=== PATIENT | female | born 1970 | race Caucasian/White ===

== ENCOUNTER 2022-03-10 07:25 | Day surgery (SDC) | payer MEDICARE, MEDICAID ==
[~2022-03-10] VITALS: Ht 157.5 cm; Wt 81.6 kg
[2022-03-10] MEDS ORDERED: ESTRACE1 MG PO (07:49)
[2022-03-10] MEDS ORDERED: LIPOFEN50 MG PO (07:51)
[2022-03-10] MEDS ORDERED: GABAPENTIN600 MG PO (07:52)
[2022-03-10] MEDS ORDERED: MOTRIN200 MG PO (07:53)
[2022-03-10] MEDS ORDERED: MAGNESIUM CITR100 M1 PO (07:55)
[2022-03-10] MEDS ORDERED: MULTIVITAMIN WO1 TAB PO (07:56)
[2022-03-10] MEDS ORDERED: NASACORT A55 MCG/ACT NAB (07:57)
[2022-03-10] MEDS ORDERED: OMEPRAZOLE20 MG PO (08:09)
[2022-03-10] MEDS ORDERED: PROGESTERONE100 MG PO (08:10)
[2022-03-10] MEDS ORDERED: PRAVASTATIN SOD20 MG PO (08:10)
[2022-03-10] MEDS ORDERED: SUDAFED SINUS (08:11)
[2022-03-10] MEDS ORDERED: TIZANIDINE2 MG PO (08:12)
[2022-03-10] MEDS ORDERED: TRAMADOL HCL50 MG PO (08:15)
[2022-03-10] MEDS ORDERED: TRAZODONE50 MG PO (08:15)
[2022-03-10] MEDS ORDERED: D3 MAXIMUM5000 UNI1 PO (08:17)
[2022-03-10] MEDS ORDERED: ZYRTEC10 MG PO (08:18)
[2022-03-10] MEDS ORDERED: MILK THISTL2 PO (08:18)
[2022-03-10] MEDS ORDERED: D3 MAXIMUM5000 UNI1 (08:26)
[2022-03-10 10:12] VITALS: BP 123/88
== END 2022-03-10 09:55 | disposition home or self-care (01) ==
LOC: ORM 07:25
PROVIDERS: ATTEND Physical Medicine & Rehabilitation
DX: M54.16 Radiculopathy, lumbar region (principal); G89.4 Chronic pain syndrome; M96.1 Postlaminectomy syndrome, not elsewhere classified
CPT/HCPCS: J1100; J3490; Q9967

== ENCOUNTER 2022-04-21 07:25 | Day surgery (SDC) | payer MEDICARE, MEDICAID ==
[~2022-04-21] VITALS: Ht 157.5 cm; Wt 81.6 kg
[~2022-04-21 07:25] MED LIST: D3 MAXIMUM5000 UNI1; D3 MAXIMUM5000 UNI1 PO; ESTRACE1 MG PO; GABAPENTIN600 MG PO; LIPOFEN50 MG PO; MAGNESIUM CITR100 M1 PO; MILK THISTL2 PO; MOTRIN200 MG PO; MULTIVITAMIN WO1 TAB PO; NASACORT A55 MCG/ACT NAB; OMEPRAZOLE20 MG PO; PRAVASTATIN SOD20 MG PO; PROGESTERONE100 MG PO; SUDAFED SINUS; TIZANIDINE2 MG PO; TRAMADOL HCL50 MG PO; TRAZODONE50 MG PO; ZYRTEC10 MG PO
[2022-04-21 10:05] VITALS: BP 118/87
== END 2022-04-21 10:24 | disposition home or self-care (01) ==
LOC: ORM 07:25
PROVIDERS: ATTEND Physical Medicine & Rehabilitation
DX: M54.16 Radiculopathy, lumbar region (principal); M51.26 Other intervertebral disc displacement, lumbar region; M51.36 Other intervertebral disc degeneration, lumbar region; Z20.822 Contact with and (suspected) exposure to COVID-19; Z01.818 Encounter for other preprocedural examination; Z11.59 Encounter for screening for other viral diseases
CPT/HCPCS: J1100; J3490; Q9967